=== PATIENT | female | born 1995 | race Caucasian/White ===

== ENCOUNTER → 2020-04-28 | Outpatient (CLI) | payer OTHER ==
[~2020-04-28] MED LIST: BCP; PREN1TAB79 PEG
== END | disposition home or self-care (01) ==
LOC: STAR 15:33
PROVIDERS: ATTEND Obstetrics & Gynecology
DX: Z20.828 Contact with and (suspected) exposure to other viral communicable diseases (principal)
CPT/HCPCS: 87635

== ENCOUNTER 2020-04-30 22:06 | Inpatient (IN) | payer OTHER ==
[~2020-04-30] VITALS: Ht 167.6 cm; Wt 88.6 kg
[~2020-04-30 22:06] MED LIST changes: -PREN1TAB79 PEG
[2020-04-30 22:24] VITALS: BP 126/77
[2020-04-30] MEDS ORDERED: PREN1TAB79 PEG (22:24)
[2020-04-30] MEDS: LACTATED RINGERS 1,000 ML IV SCH (23:35)
[2020-04-30] MEDS ORDERED: NEWBORN KIT ONE (23:49)
[2020-04-30] MEDS ORDERED: MISOPROSTOL 200 MCG TABLET ONE (23:50)
[2020-04-30] MEDS ORDERED: OXYTOCIN 30U/ 0.9% NaCL 500ML 500 ML ONE (23:50)
[2020-05-01] MEDS ORDERED: TERBUTALINE 1 MG/ML, 1ML IVPush PRN
[2020-05-01] MEDS ORDERED: TERBUTALINE 1 MG/ML, 1ML SQ PRN
[2020-05-01] MEDS ORDERED: FENTANYL PF 100 MCG/2ML IV PRN
[2020-05-01] MEDS ORDERED: SODIUM CITRATE/CITRIC ACID 30 ML UDC PO PRN
[2020-05-01] MEDS ORDERED: OXYTOCIN 30U/ 0.9% NaCL 500ML 500 ML IV ONE
[2020-05-01] MEDS ORDERED: FENTANYL PF 100 MCG/2ML IVPush PRN
[2020-05-01] MEDS ORDERED: METOCLOPRAMIDE 5 MG/ML, 2ML IVPush PRN
[2020-05-01] MEDS ORDERED: OXYTOCIN 30U/ 0.9% NaCL 500ML 500 ML IV PRN
[2020-05-01] MEDS ORDERED: ONDANSETRON 2MG/ML, 2ML IVPush PRN
[2020-05-01] MEDS ORDERED: D5%-LACTATED RINGERS 1,000 ML IV SCH
[2020-05-01] MEDS: LACTATED RINGERS 1,000 ML IV SCH (00:16)
[2020-05-01 00:36] LABS: BASOPHILS % (AUTO) 0 % (0-1); EOSINOPHILS % (AUTO) 1 % (1-7); LYMPHOCYTES % (AUTO) 16 % (22-44); MD NO; MEAN CORPUSCULAR HEMOGLOBIN 29.3 pg (27.0-34.8); MEAN CORPUSCULAR HGB CONC 34.3 g/dL (32.4-35.8); MEAN PLATELET VOLUME 8.6 fL (7.4-10.4); MONOCYTES % (AUTO) 8 % (2-9); NEUTROPHILS % (AUTO) 75 % (42-75); PLATELET COUNT 232 x10^3/uL (130-400); RED BLOOD COUNT 4.08 x10^6/uL (3.82-5.3); RED CELL DISTRIBUTION WIDTH 14.3 % (9.6-15.2)
[2020-05-01] MEDS ORDERED: BUPIVACAINE 0.25% ONE (00:45)
[2020-05-01] MEDS ORDERED: EPHEDRINE 50 MG/ML, 1ML IVPush PRN ×2 (01:00→01:30)
[2020-05-01] MEDS ORDERED: LACTATED RINGERS 1,000 ML IV SCH ×2 (01:00→01:30)
[2020-05-01] MEDS ORDERED: FENTANYL/BUPIV./NS/PF 250 ML EPIDCONT SCH ×2 (01:00→01:30)
[2020-05-01] MEDS ORDERED: LACTATED RINGERS 1,000 ML IVBOLUS PRN ×2 (01:00→01:30)
[2020-05-01] MEDS ORDERED: ONDANSETRON 2MG/ML, 2ML ONE (05:58)
[2020-05-01] MEDS ORDERED: NEWBORN KIT ONE (07:01)
[2020-05-01] MEDS ORDERED: DOCUSATE 100 MG CAPSULE PO PRN (07:30)
[2020-05-01] MEDS ORDERED: RHOGAM FROM BLOOD BANK 1 NOTE EA IM/IV ONE (07:30)
[2020-05-01] MEDS ORDERED: MAGNESIUM HYDROXIDE 8%, 30ML UDC PO PRN (07:30)
[2020-05-01] MEDS ORDERED: SIMETHICONE 80 MG CHEW TAB PO PRN (07:30)
[2020-05-01] MEDS ORDERED: OXYcodone/APAP 5/325MG TABLET PO PRN ×2 (07:30)
[2020-05-01] MEDS ORDERED: ACETAMINOPHEN 325 MG TABLET PO PRN ×2 (07:30)
[2020-05-01] MEDS ORDERED: MISOPROSTOL 200 MCG TABLET PR PRN (07:30)
[2020-05-01] MEDS ORDERED: ONDANSETRON 2MG/ML, 2ML IV PRN (07:30)
[2020-05-01] MEDS ORDERED: CALCIUM CARBONATE 500 MG TAB.CHEW PO PRN (07:30)
[2020-05-01] MEDS ORDERED: DIPH,PERTUSS(ACELL),TET VAC/PF NC IM-VACC PRN (07:30)
[2020-05-01] MEDS ORDERED: IBUPROFEN 600 MG TABLET ONE (07:43)
[2020-05-01] MEDS ORDERED: OXYTOCIN 30U/ 0.9% NaCL 500ML 500 ML ONE (07:43)
[2020-05-01] MEDS: OXYTOCIN 30U/ 0.9% NaCL 500ML 500 ML IV SCH ×2 (07:44→18:16)
[2020-05-01 10:05] VITALS: BP 104/69
[2020-05-01] MEDS: IBUPROFEN 600 MG TABLET PO PRN ×2 (14:08→20:45)
[2020-05-01] MEDS: PRENATAL VIT/IRON/FA 1 EACH TABLET PO SCH (14:10)
[2020-05-01 14:11] VITALS: BP 111/74
[2020-05-01 15:36] LABS: BASOPHILS % (AUTO) 0 % (0-1); EOSINOPHILS % (AUTO) 0 % (1-7); LYMPHOCYTES % (AUTO) 9 % (22-44); MEAN CORPUSCULAR HEMOGLOBIN 29.1 pg (27.0-34.8); MEAN CORPUSCULAR HGB CONC 33.9 g/dL (32.4-35.8); MEAN PLATELET VOLUME 8.5 fL (7.4-10.4); MONOCYTES % (AUTO) 8 % (2-9); NEUTROPHILS % (AUTO) 83 % (42-75); PLATELET COUNT 214 x10^3/uL (130-400); RED BLOOD COUNT 3.82 x10^6/uL (3.82-5.3); RED CELL DISTRIBUTION WIDTH 14.6 % (9.6-15.2)
[2020-05-01 15:41] LABS: MD NO
[2020-05-01 17:30] VITALS: BP_SYST 59
[2020-05-01 20:00] VITALS: BP 100/63
[2020-05-02] VITALS: BP 108/64
[2020-05-02] MEDS: IBUPROFEN 600 MG TABLET PO PRN ×2 (03:59→10:41)
[2020-05-02] MEDS: PRENATAL VIT/IRON/FA 1 EACH TABLET PO SCH (08:39)
[2020-05-02] MEDS ORDERED: IBUP-1222 PO (15:52)
== END 2020-05-02 16:25 | disposition home or self-care (01) | DRG 807 ==
LOC: LDOP 22:06 → LDIP 23:52 → 2NW 05-01 10:15
PROVIDERS: ADMIT Obstetrics & Gynecology; ATTEND Student in an Organized Health Care Education/Training Program
PROC: 10E0XZZ Delivery of Products of Conception, External Approach (ICD-10-PCS; principal; 2020-05-01)
PROC: 0KQM0ZZ Repair Perineum Muscle, Open Approach (ICD-10-PCS; 2020-05-01)
PROC: 3E0R3BZ Introduction of Anesthetic Agent into Spinal Canal, Percutaneous Approach (ICD-10-PCS; 2020-05-01)
PROC: 00HU33Z Insertion of Infusion Device into Spinal Canal, Percutaneous Approach (ICD-10-PCS; 2020-05-01)
DX: O70.1 Second degree perineal laceration during delivery (principal); Z37.0 Single live birth; Z3A.40 40 weeks gestation of pregnancy
CPT/HCPCS: 36415; 59025; 85025; 86592; 86850; 86900; G0378; J2405; J2590; J3010; J7120